=== PATIENT | female | born 1995 | race African-American/Black ===

== ENCOUNTER 2016-11-30 11:46 | Emergency (ER) | payer SELFPAY ==
[~2016-11-30] VITALS: Ht 167.6 cm; Wt 77.0 kg
[2016-11-30 11:48] VITALS: BP 118/61; PULSE 80; RESP 15; TEMP 98.2; O2SAT 98
--- NOTE | 2016-11-30 12:03 | PD ---
HPI . Pelvic pain Chief Complaint: Infant Room Teacher Problem/Complaint Time Seen by Provider: 11:54 Travel History International Travel<30 days: No Contact w/Intl Traveler<30days: No Traveled to known affect area: No History of Present Illness HPI Patient presents complaining with amenorrhea since July, vaginal itching and foul odor and pelvic pain. She states she has had these symptoms for about a month. She describes the pelvic pain as similar to menstrual cramps and rates it as 7/10. Pain is exacerbated by sexual intercourse. She reports no relieving factors. PFSH Past Medical History ?: Not LMP: 07/2016 Social History Tobacco Use: No Allergies-Medications (Allergen,Severity, Reaction): Coded Allergies: No Known Allergies (Unverified , 11/30/16) Reported Meds & Prescriptions Reported Meds & Active Scripts Active Ultram (Tramadol HCl) 50 Mg Tab 50 Mg PO Q4H PRN Ibuprofen 800 Mg Tab 800 Mg PO Q8H PRN Flagyl (Metronidazole) 500 Mg Tab 500 Mg PO BID 7 Days Doxycycline Hyclate 100 Mg Cap 100 Mg PO BID Review of Systems Except as stated in HPI: all other systems reviewed are Neg General / Constitutional: No: Fever, Chills Genitourinary: Positive: Pelvic Pain, Dyspareunia (amenorrhea), Discharge, Other, No: Urgency, Frequency, Dysuria Physical Exam Narrative GENERAL: Awake and alert and in no acute distress. SKIN: Warm and dry. HEAD: Atraumatic. Normocephalic. EYES: Pupils equal and round. NECK: Trachea midline. CARDIOVASCULAR: Regular rate and rhythm. RESPIRATORY: No accessory muscle use. MUSCULOSKELETAL: No obvious deformities. No edema. ABDOMEN: Abdomen is soft with suprapubic tenderness. No guarding or rebound. : Normal female. No obvious blood or discharge in the vaginal vault. Cervical os is closed. She does have cervical motion tenderness and bilateral adnexal tenderness. NEUROLOGICAL: Awake and alert. No obvious cranial nerve deficits. Motor grossly within normal limits. Normal speech. PSYCHIATRIC: Appropriate mood and affect; insight and judgment normal. Data Data Last Documented VS Vital Signs Date Time Temp Pulse Resp B/P Pulse Ox O2 Delivery O2 Flow Rate FiO2 11/30/16 11:48 98.2 80 15 118/61 98 Orders Gc And Chlamydia Pcr (11/30/16 11:55) Wet Prep Profile (11/30/16 11:55) Urinalysis - C+S If Indicated (11/30/16 11:55) Ed Urine Pregnancytest Poc (11/30/16 11:55) Ceftriaxone Inj (Rocephin Inj) (11/30/16 12:45) Lidocaine 1% Inj (50 Ml) (Xylocaine 1% I (11/30/16 12:45) MDM Medical Decision Making Medical Screen Exam Complete: Yes Emergency Medical Condition: Yes Differential Diagnosis Differential diagnosis of pelvic pain includes but is not limited to UTI, PID, ectopic , spontaneous AB, constipation, viral illness Narrative Course Patient presents complaining with pelvic pain. Exam is compatible with PID. Diagnosis Primary Impression: Pelvic pain Additional Impression: PID (acute pelvic inflammatory disease) Patient Instructions: General Instructions, Pelvic Inflammatory Disease (DC) Med/Other Pt SpecificInfo: Prescription(s) given Scripts Tramadol (Ultram)50 Mg Tab50 Mg PO Q4H PRN (PAIN) #12 TAB Ref 0 Prov:Lani Chambers MD 11/30/16 Ibuprofen 800 Mg Itw480 Mg PO Q8H PRN (pain) #30 TAB Ref 0 Prov:Lani Chambers MD 11/30/16 Metronidazole (Flagyl)500 Mg Bow691 Mg PO BID 7 Days Ref 0 Prov:Lani Chambers MD 11/30/16 Doxycycline Hyclate 100 Mg Yrw297 Mg PO BID #20 CAP Ref 0 Prov:Lani Chambers MD 11/30/16 Disposition: 01 DISCHARGE HOME Condition: Stable Lani Chambers MD Nov 30, 2016 12:03
[2016-11-30] MEDS ORDERED: ULTR50TA5 PO (12:37)
[2016-11-30] MEDS ORDERED: IBUP800T23 PO (12:37)
[2016-11-30] MEDS ORDERED: DOXY100C PO (12:37)
[2016-11-30] MEDS ORDERED: METR-1 PO (12:37)
[2016-11-30] MEDS ORDERED: cefTRIAXone 250 MG VIAL IM ONE (12:45)
[2016-11-30] MEDS ORDERED: LIDOCAINE HCL 1% 50 ML VIAL XX ONE (12:45)
[2016-11-30 12:55] LABS: BLOOD, URINE NEG (NEG); COMMENT (UR) CULT NOT INDICATED; CULTURE IF INDICATED CULT NOT INDICATED; GLUCOSE,URINE NEG (NEG); KETONE, URINE NEG (NEG); MUCUS URINE FEW /lpf (OCC); NITRITE,URINE NEG (NEG); PH, URINE 5.5 (5.0-8.5); SQUAMOUS EPITHELIAL CELL URINE 3 /hpf (0-5); URINE COLOR YELLOW (YELLW/STRAW)
[2016-11-30 19:10] LABS: CHLAMYDIA PCR NOT DETECTED (NOT DETECT); NEISSERIA PCR NOT DETECTED (NOT DETECT)
== END 2016-11-30 13:25 | disposition home or self-care (01) ==
LOC: NEPD 11:46
DX: R10.2 Pelvic and perineal pain (principal); N73.9 Female pelvic inflammatory disease, unspecified; N91.2 Amenorrhea, unspecified
CPT/HCPCS: 81001; 84703; 87210; 87491; 87591; 96372; 99284; J0696

== ENCOUNTER 2016-12-23 14:43 | Emergency (ER) | payer MEDICAID ==
[~2016-12-23] VITALS: Ht 167.6 cm; Wt 81.0 kg
[~2016-12-23 14:43] MED LIST: DOXY100C PO; IBUP800T23 PO; METR-1 PO; ULTR50TA5 PO
[2016-12-23 16:56] LABS: AUTOMATED NEUTROPHIL # 4.3 TH/MM3 (1.8-7.7); BASOPHIL % 0.5 % (0.0-2.0); EOSINOPHIL # 0.1 TH/MM3 (0-0.4); EOSINOPHIL % 1.5 % (0.0-4.0); HEMATOCRIT 35.7 % (35.0-46.0); HEMO FLAGS DIFF FINAL; LYMPH % 27.4 % (9.0-44.0); LYMPHOCYTE # 1.9 TH/MM3 (1.0-4.8); MEAN CELL VOLUME 87.5 FL (80.0-100.0); MEAN CORPUSCULAR HEMOGLOBIN 29.1 PG (27.0-34.0); MEAN CORPUSCULAR HGB CONC 33.3 % (32.0-36.0); MONO % 7.7 % (0.0-8.0); NEUT % 62.9 % (16.0-70.0); PLATELET COUNT 252 TH/MM3 (150-450); RED BLOOD COUNT 4.08 MIL/MM3 (4.00-5.30); RED CELL DISTRIBUTION WIDTH 12.2 % (11.6-17.2); WHITE BLOOD COUNT 6.8 TH/MM3 (4.0-11.0)
--- NOTE | 2016-12-23 17:16 | PD ---
HPI Chief Complaint: Related Problem Time Seen by Provider: 16:50 Travel History International Travel<30 days: No Contact w/Intl Traveler<30days: No Traveled to known affect area: No History of Present Illness HPI 21 year old black female presents with C/O of vaginal bleeding & low ABD pain since this morning. She reports she had a positive test 2 weeks prior. Her last normal period was in June of 2017, although she had a negative 3 weeks ago at this hospital. A1. She reports bleeding is consistent with a normal period. She denies N/V, fever, chills, or weakness. She denies any PMH. She denies any home meds. PFSH Past Medical History Medical History: Denies Significant Hx ?: LMP: jun 2016 Past Surgical History Surgical History: No Previous Surgery Social History Alcohol Use: No Tobacco Use: No Substance Use: No Allergies-Medications (Allergen,Severity, Reaction): Coded Allergies: No Known Allergies (Unverified , 11/30/16) Reported Meds & Prescriptions Reported Meds & Active Scripts Active No Active Prescriptions or Reported Medications Review of Systems Except as stated in HPI: all other systems reviewed are Neg Physical Exam Narrative GENERAL: Well appearing black female in no distress. SKIN: Warm and dry. HEAD: Normocephalic. EYES: No scleral icterus. No injection or drainage. NECK: Supple, trachea midline. No JVD or lymphadenopathy. CARDIOVASCULAR: Regular rate and rhythm without murmurs, gallops, or rubs. RESPIRATORY: Breath sounds equal bilaterally. No accessory muscle use. GASTROINTESTINAL: Abdomen soft, non-tender, nondistended. MUSCULOSKELETAL: No cyanosis, or edema. BACK: Nontender without obvious deformity. No CVA tenderness. Data Data Last Documented VS Vital Signs Date Time Temp Pulse Resp B/P Pulse Ox O2 Delivery O2 Flow Rate FiO2 12/23/16 18:38 98.2 78 15 126/68 100 Room Air Orders Ed Urine Pregnancytest Poc (12/23/16 15:44) Beta Hcg (Quant/Titer) (12/23/16 16:07) Complete Blood Count With Diff (12/23/16 16:07) Type And Screen (12/23/16 16:07) Us Pelvis (Ques Pr/Ect)W Trans (12/23/16 ) Labs Laboratory Tests Test 12/23/16 16:35 White Blood Count 6.8 TH/MM3 Red Blood Count 4.08 MIL/MM3 Hemoglobin 11.9 GM/DL Hematocrit 35.7 % Mean Corpuscular Volume 87.5 FL Mean Corpuscular Hemoglobin 29.1 PG Mean Corpuscular Hemoglobin 33.3 % Concent Red Cell Distribution Width 12.2 % Platelet Count 252 TH/MM3 Mean Platelet Volume 8.3 FL Neutrophils (%) (Auto) 62.9 % Lymphocytes (%) (Auto) 27.4 % Monocytes (%) (Auto) 7.7 % Eosinophils (%) (Auto) 1.5 % Basophils (%) (Auto) 0.5 % Neutrophils # (Auto) 4.3 TH/MM3 Lymphocytes # (Auto) 1.9 TH/MM3 Monocytes # (Auto) 0.5 TH/MM3 Eosinophils # (Auto) 0.1 TH/MM3 Basophils # (Auto) 0.0 TH/MM3 CBC Comment DIFF FINAL Differential Comment Human Chorionic Gonadotropin, 3139 MIU/ML Quant Blood Type O POSITIVE Antibody Screen NEGATIVE Blood Bank Comment MDM Medical Decision Making Medical Screen Exam Complete: Yes Emergency Medical Condition: Yes Medical Record Reviewed: Yes Differential Diagnosis ectopic vs spontaneous miscarriage vs vaginal bleeding in Narrative Course 21 year old female with vaginal bleeding in early . She is well appearing. CBC, Beta HCG, transvaginal US pending. CBC unremarkable, Beta HCG 3139, US gestational sac located in the lower uterine segment, no adnexal mass. Patient is well appearing reports minimal pain/discomfort. Discussed labs & US findings & need for repeat serum HCG in 2 days. 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 she agrees to plan. Diagnosis Primary Impression: Threatened Patient Instructions: General Instructions Additional Instructions: return to ED for repeat serum HCG in 2 days. return prior if you develop new or worsening symptoms. Scripts No Active Prescriptions or Reported Meds Disposition: 01 DISCHARGE HOME Condition: Stable Yojana Robledo December 23, 2016 17:16
[2016-12-23 17:34] LABS: BETA HCG QUANT 3139 MIU/ML (0-5)
[2016-12-23 18:38] VITALS: BP 126/68; PULSE 78; RESP 15; TEMP 98.2; O2SAT 100
--- NOTE | 2016-12-23 20:25 | RADRPT ---
EXAM DATE/TIME: 12/23/2016 18:37 [facility] COMPARISON: No previous studies available for comparison. INDICATIONS : Pelvic pain and bleeding with . LAB(S): Beta-hC MEDICAL HISTORY : . Miscarriage. SURGICAL HISTORY : None. ENCOUNTER: Initial ACUITY: 1 day PAIN SCORE: 7/10 LOCATION: Bilateral pelvis MEASUREMENTS: UTERUS: 8.8 x 5.1 x 4.3 cm ENDOMETRIAL STRIPE: 7 mm RIGHT OVARY: 3.7 x 3.1 x 1.8 cm LEFT OVARY: 3.3 x 2.4 x 2.1 cm FREE FLUID: Yes Small amount in posterior cul-de-sac.. CROWN RUMP LENGTH: Non visualized. = WKS DAYS FHR: Non visualized. BPM FINDINGS: There appears to be a small gestational sac in the region of the lower uterine segment/cervix. No vi sible pole or yolk sac is identified. The findings raise the possibility of early or missed . Clinical correlation is recommended. Correlation with serial Beta HCG levels is r ecommended. No adnexal mass is noted. Minimal free fluid is noted within the cul-de-sac. The ovari es are unremarkable. CONCLUSION: 1. Small apparent gestational sac in the region of the lower uterine segment/cervix. Differential i ncludes missed/impending or early intrauterine . Correlation with serial Beta HCG levels and clinical findings is suggested. 2. Minimal free fluid within the cul-de-sac. 3. No adnexal mass. 4. Unremarkable ovaries. 5. There is no evidence of pole or yolk sac within the apparent gestational sac. Chencho Eastman MD on December 23, 2016 at 20:09 Board Certified Radiologist. This report was verified electronically.
--- NOTE | 2016-12-23 21:07 | PD ---
Data Data Last Documented VS Vital Signs Date Time Temp Pulse Resp B/P Pulse Ox O2 Delivery O2 Flow Rate FiO2 12/23/16 18:38 98.2 78 15 126/68 100 Room Air Orders Ed Urine Pregnancytest Poc (12/23/16 15:44) Beta Hcg (Quant/Titer) (12/23/16 16:07) Complete Blood Count With Diff (12/23/16 16:07) Type And Screen (12/23/16 16:07) Us Pelvis (Ques Pr/Ect)W Trans (12/23/16 ) Labs Laboratory Tests Test 12/23/16 16:35 White Blood Count 6.8 TH/MM3 Red Blood Count 4.08 MIL/MM3 Hemoglobin 11.9 GM/DL Hematocrit 35.7 % Mean Corpuscular Volume 87.5 FL Mean Corpuscular Hemoglobin 29.1 PG Mean Corpuscular Hemoglobin 33.3 % Concent Red Cell Distribution Width 12.2 % Platelet Count 252 TH/MM3 Mean Platelet Volume 8.3 FL Neutrophils (%) (Auto) 62.9 % Lymphocytes (%) (Auto) 27.4 % Monocytes (%) (Auto) 7.7 % Eosinophils (%) (Auto) 1.5 % Basophils (%) (Auto) 0.5 % Neutrophils # (Auto) 4.3 TH/MM3 Lymphocytes # (Auto) 1.9 TH/MM3 Monocytes # (Auto) 0.5 TH/MM3 Eosinophils # (Auto) 0.1 TH/MM3 Basophils # (Auto) 0.0 TH/MM3 CBC Comment DIFF FINAL Differential Comment Human Chorionic Gonadotropin, 3139 MIU/ML Quant Blood Type O POSITIVE Antibody Screen NEGATIVE Blood Bank Comment [facility] Supervised Visit with SANDIE: Yes Narrative Course The history, exam, and medical decision-making in the associated midlevel provider note were completed with my assistance. I reviewed and agree with the findings presented. I attest that I had a [id number] encounter with the patient on the same day, and personally performed and documented my assessment and findings in the medical record. *My assessment and Findings: This is a 21-year-old female who presents the emergency department with a positive test and vaginal bleeding. She is well-appearing on exam. Ultrasound demonstrates a towards the lower uterine segment which could be an incomplete miscarriage versus an early . Patient was asked to return to the emergency department for repeat hCG in 2 days and reevaluation. She expressed understanding. Diagnosis Primary Impression: Threatened Patient Instructions: General Instructions Additional Instruction: return to ED for repeat serum HCG in 2 days. return prior if you develop new or worsening symptoms. Scripts No Active Prescriptions or Reported Meds Disposition: 01 DISCHARGE HOME Condition: Stable Juana Duran MD December 23, 2016 21:07
--- NOTE | 2016-12-28 21:07 | PD ---
HPI Chief Complaint: Related Problem Time Seen by Provider: 16:50 Travel History International Travel<30 days: No Contact w/Intl Traveler<30days: No Traveled to known affect area: No History of Present Illness HPI 21 year old female present with C/O vaginal bleeding & low ABD pain since this morning. She reports the pain as cramping, non radiating, and intermittent since this morning. She reports she had a positive test 2 weeks prior. Her last normal period was June of 2016. She reports a negative test 3 weeks ago here at this hospital. B3. She reports the bleeding is consistent with a normal period. She denies dizziness, N/V, fever, chills, or weakness. She denies PMH. No home meds. PFSH Past Medical History Medical History: Denies Significant Hx ?: LMP: jun 2016 Past Surgical History Surgical History: No Previous Surgery Social History Alcohol Use: No Tobacco Use: No Substance Use: No Allergies-Medications (Allergen,Severity, Reaction): Coded Allergies: No Known Allergies (Unverified , 12/26/16) Reported Meds & Prescriptions Reported Meds & Active Scripts Active No Active Prescriptions or Reported Medications Review of Systems Except as stated in HPI: all other systems reviewed are Neg Physical Exam Narrative GENERAL: Well appearing black female in no distress. SKIN: Warm and dry. HEAD: Normocephalic. EYES: No scleral icterus. No injection or drainage. NECK: Supple, trachea midline. No JVD or lymphadenopathy. CARDIOVASCULAR: Regular rate and rhythm without murmurs, gallops, or rubs. RESPIRATORY: Breath sounds equal bilaterally. No accessory muscle use. GASTROINTESTINAL: Abdomen soft, non-tender, nondistended. MUSCULOSKELETAL: No cyanosis, or edema. BACK: Nontender without obvious deformity. No CVA tenderness. Data Data Orders Ed Urine Pregnancytest Poc (12/23/16 15:44) Beta Hcg (Quant/Titer) (12/23/16 16:07) Complete Blood Count With Diff (12/23/16 16:07) Type And Screen (12/23/16 16:07) Us Pelvis (Ques Pr/Ect)W Trans (12/23/16 ) [facility] Medical Decision Making Medical Screen Exam Complete: Yes Emergency Medical Condition: Yes Medical Record Reviewed: Yes Differential Diagnosis ectopic vs spontaneous miscarriage vs vaginal bleeding in Narrative Course 21 year old female with vaginal bleeding in early . She is well appearing. CBC, Beta HCG, transvaginal US pending. CBC unremarkable, Beta HCG 3139, US gestational sac located in lower uterine segment, no adnexal mass. Patient is well appearing reports minimal pain/discomfort. Discussed labs & US findings & need for repeat serum HCG in 2 days. 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 Diagnosis Primary Impression: Threatened Patient Instructions: Threatened Miscarriage (ED) Departure Forms: Tests/Procedures Additional Instructions: return to ED for repeat serum HCG in 2 days. return prior if you develop new or worsening symptoms. Scripts No Active Prescriptions or Reported Meds Disposition: 01 DISCHARGE HOME Condition: Stable Yojana Robledo December 28, 2016 21:07
== END 2016-12-23 21:49 | disposition home or self-care (01) ==
LOC: NEPD 14:43
DX: O20.0 Threatened abortion (principal); R10.30 Lower abdominal pain, unspecified
CPT/HCPCS: 76700; 76817; 84702; 84703; 85025; 86850; 86900; 86901

== ENCOUNTER 2016-12-25 09:34 | Emergency (ER) | payer MEDICAID ==
[~2016-12-25] VITALS: Ht 167.6 cm; Wt 80.0 kg
[2016-12-25 09:35] VITALS: BP 112/60; PULSE 74; RESP 20; TEMP 97.4; O2SAT 100
--- NOTE | 2016-12-25 10:09 | PD ---
HPI Chief Complaint: Related Problem Time Seen by Provider: 09:47 Travel History International Travel<30 days: No Contact w/Intl Traveler<30days: No Traveled to known affect area: No History of Present Illness HPI The patient is a 21-year-old Gina female who is Ab1 whose last menstrual cycle was June 2016, she does have a history of irregular menstrual cycles. The patient was evaluated in the emergency department several days ago where she had an ultrasound performed and a beta hCG performed , was diagnosed with threatened AB and advised to return in 48-72 hours for repeat beta hCG. The patient states she had some vaginal bleeding that started 3 days ago, is now very light without any visible clots. The patient denies any lower abdominal pain or cramping. The patient denies any associated nausea , vomiting, or upper abdominal pain. She denies any dysuria, frequency, or urgency. PFSH Past Medical History ?: Social History Alcohol Use: No Tobacco Use: No Substance Use: No Allergies-Medications (Allergen,Severity, Reaction): Coded Allergies: No Known Allergies (Unverified , 12/25/16) Reported Meds & Prescriptions Reported Meds & Active Scripts Active No Active Prescriptions or Reported Medications Review of Systems Except as stated in HPI: all other systems reviewed are Neg General / Constitutional: No: Fever Cardiovascular: No: Chest Pain or Discomfort Respiratory: No: Shortness of Breath Gastrointestinal: No: Nausea, Vomiting, Diarrhea, Abdominal Pain Genitourinary: Positive: Vaginal Bleeding, No: Dysuria, Pelvic Pain Physical Exam Narrative GENERAL: Awake, alert, 21-year-old female who appears her stated age and is in no acute respiratory distress. SKIN: Focused skin assessment warm/dry. HEAD: Atraumatic. Normocephalic. EYES: Pupils equal and round. No scleral icterus. No injection or drainage. ENT: No nasal bleeding or discharge. Mucous membranes pink and moist. NECK: Trachea midline. No JVD. CARDIOVASCULAR: Regular rate and rhythm. No murmur appreciated. RESPIRATORY: No accessory muscle use. Clear to auscultation. Breath sounds equal bilaterally. GASTROINTESTINAL: Abdomen soft, non-tender, nondistended. No rebound tenderness. Back: No CVA tenderness. MUSCULOSKELETAL: No obvious deformities. No clubbing. No cyanosis. No edema. NEUROLOGICAL: Awake and alert. No obvious cranial nerve deficits. Motor grossly within normal limits. Normal speech. PSYCHIATRIC: Appropriate mood and affect; insight and judgment normal. Data Data Last Documented VS Vital Signs Date Time Temp Pulse Resp B/P Pulse Ox O2 Delivery O2 Flow Rate FiO2 12/25/16 10:11 80 18 12/25/16 09:35 97.4 112/60 100 Room Air Orders Beta Hcg (Quant/Titer) (12/25/16 10:05) Labs Laboratory Tests Test 12/25/16 10:25 Human Chorionic Gonadotropin, 4286 MIU/ML Quant MDM Medical Decision Making Medical Screen Exam Complete: Yes Emergency Medical Condition: Yes Medical Record Reviewed: Yes Interpretation(s) Laboratory Tests Test 12/25/16 10:25 Human Chorionic Gonadotropin, 4286 MIU/ML Quant Differential Diagnosis Differential diagnosis includes threatened AB, incomplete AB, normal , ectopic . Narrative Course I reviewed the patient's labs from several days ago, she had a blood bank performed which revealed a positive, therefore, no indication for RhoGAM. The patient's beta hCG at that time was 3139. Patient had an ultrasound which revealed what appeared to be an early in the lower uterine segment upper cervix versus threatened AB. Therefore, repeat beta ECG with level will be performed. The patient is currently asymptomatic except for light vaginal bleeding, I doubt ectopic . The patient's beta hCG levels up to 4286, therefore, patient may have threatened AB versus normal . The patient is advised to follow-up with an rail track layer. Return if symptoms worsen or progress. Diagnosis Primary Impression: Threatened Patient Instructions: General Instructions Additional Instructions: Please provide a patient a copy of her beta hCG results and ultrasound results from previous visit at discharge. Follow-up with an rail track layer. Take a vitamin daily. Return if symptoms worsen or progress. Scripts No Active Prescriptions or Reported Meds Disposition: DISCHARGE HOME Condition: Stable Mark Duff MD December 25, 2016 10:08
[2016-12-25 11:13] LABS: BETA HCG QUANT 4286 MIU/ML (0-5)
== END 2016-12-25 11:43 | disposition home or self-care (01) ==
LOC: NEPD 09:34
DX: O20.0 Threatened abortion (principal); Z3A.00 Weeks of gestation of pregnancy not specified
CPT/HCPCS: 84702; 99283

== ENCOUNTER 2016-12-30 13:34 | Emergency (ER) | payer MEDICAID ==
[~2016-12-30] VITALS: Ht 167.6 cm; Wt 80.0 kg
[2016-12-30 13:35] VITALS: BP 124/98; PULSE 96; RESP 20; TEMP 97.3; O2SAT 100
--- NOTE | 2016-12-30 14:32 | PD ---
HPI Chief Complaint: Related Problem Time Seen by Provider: 14:28 Travel History International Travel<30 days: No Contact w/Intl Traveler<30days: No Traveled to known affect area: No History of Present Illness HPI Patient comes back to the emergency department complaining of continued abdominal cramping and vaginal bleeding. Patient reports this got worse yesterday. Patient states that she was supposed to get blood work done 2 days ago after seeing OB however she was not able to go and tried to go yesterday instead, but the lab was closed. Patient denies any fevers, nausea, vomiting, loss change in bowel or bladder, chest pain, shortness of breath. Patient states she is wanting to know what is going on inside of her. Patient reports she's been taking vitamins. Denies doing anything else for this. A1. Patient reports she had an elective approximately a year ago. Patient states she was approximately a month and went to a doctor and was given 2 oral pills as well as 2 vaginal suppository to abort the . PFSH Past Medical History Medical History: Denies Significant Hx ?: Social History Alcohol Use: No Tobacco Use: No Substance Use: No Allergies-Medications (Allergen,Severity, Reaction): Coded Allergies: No Known Allergies (Unverified , 12/30/16) Reported Meds & Prescriptions Reported Meds & Active Scripts Active No Active Prescriptions or Reported Medications Review of Systems Except as stated in HPI: all other systems reviewed are Neg Physical Exam Narrative GENERAL: Well-developed, overly nourished, in no acute distress, and non-ill appearing. SKIN: Focused skin assessment warm and dry. HEAD: Atraumatic. Normocephalic. EYES: Pupils equal and round. EOMI. No scleral icterus. No injection or drainage. ENT: No nasal bleeding or discharge. Mucous membranes pink and moist. NECK: Trachea midline. Supple. No nuclear rigidity. CARDIOVASCULAR: Regular rate and rhythm. No murmur appreciated. RESPIRATORY: No accessory muscle use. No respiratory distress. Clear to auscultation. Breath sounds equal bilaterally. GASTROINTESTINAL: Abdomen soft, non-tender, nondistended. Hepatic and splenic margins not palpable. Normal bowel sounds 4. No pulsatile mass. MUSCULOSKELETAL: No obvious deformities. No clubbing. No cyanosis. No edema. Full range of motion. NEUROLOGICAL: Awake and alert. No obvious cranial nerve deficits. Motor grossly within normal limits. Normal speech. PSYCHIATRIC: Appropriate mood and affect; insight and judgment normal. Data Data Last Documented VS Vital Signs Date Time Temp Pulse Resp B/P Pulse Ox O2 Delivery O2 Flow Rate FiO2 12/30/16 13:35 97.3 96 20 124/98 100 Room Air Orders Beta Hcg (Quant/Titer) (12/30/16 14:25) Urinalysis - C+S If Indicated (12/30/16 14:25) Us Pelvis (Ques Pr/Ect)W Trans (12/30/16 ) Labs Laboratory Tests Test 12/30/16 14:40 Urine Color YELLOW Urine Turbidity HAZY Urine pH 7.5 Urine Specific [place] 1.028 Urine Protein 30 mg/dL Urine Glucose (UA) NEG mg/dL Urine Ketones NEG mg/dL Urine Occult Blood MOD Urine Nitrite NEG Urine Bilirubin NEG Urine Urobilinogen LESS THAN 2.0 MG/DL Urine Leukocyte Esterase MOD Urine RBC 1 /hpf Urine WBC 5 /hpf Urine Squamous Epithelial 3 /hpf Cells Urine Mucus FEW /lpf Microscopic Urinalysis Comment CULT NOT INDICATED Human Chorionic Gonadotropin, 4486 MIU/ML Quant MDM Medical Decision Making Medical Screen Exam Complete: Yes Emergency Medical Condition: Yes Interpretation(s) Pelvic ultrasound read by the radiologist shows: Persistent cystic area in the endocervical canal that appears slightly larger. However, an embryonic pole or yolk sac is not seen. This could be a missed . A pseudogestational sac cannot absolutely be excluded. An ectopic is not excluded given the lack of a normal appearing IUP. However, an adnexal mass is not seen. Differential Diagnosis Ectopic , spontaneous , threatened , molar , other Narrative Course Patient presented with vaginal bleeding and lower abdominal pain and the test was positive. Ultrasound was performed and there is no obvious evidence of a uterine , but there is a gestational sac versus cyst. However the quantitative B-HcG was elevated. There is no evidence to suggest obvious ectopic or ruptured ectopic , nor cervicitis, PID or torsion at this time. There was no evidence to support colitis, diverticulitis, obstruction, abdominal or femoral herniation, volvulus, early appendicitis, or hernial incarceration or strangulation at this time. Patient is stable. There is no RH incompatibility. After discussing with OB on-call patient can be released at this time with acute follow up. Patient was warned on the possibility of an ectopic versus cyst versus threatened and to return IMMEDIATELY if the pain and/or bleeding worsened, felt faint or passed out. The patient was instructed to follow up with OB within 2-3 days, and was given contact information. She was given ectopic warnings and warnings to return if bleeding worsened, felt faint or passed out, fever, worsening pain, inability to tolerate fluids, or as needed. The patient agreed with plan and stated will follow up as instructed. Patient in no obvious distress upon re-evaluation. All pertinent laboratory/ Radiology result(s) discussed with patient. Discussed patient with Dr. Jackson prior to discharge, who is in agreement with plan of care and disposition. Any questions/concerns in reference to patient diagnosis/condition discussed and clarified prior to patient's discharge. Reinforced sheer importance of close follow up with patient's OB. Instructed patient to return to ED immediately, if symptoms return/worsen. Pt showed understanding of above instructions. Further instructions and recommendations were detailed in discharge paperwork. Pt ambulated without difficulty out of ED at discharge. Physician Communication Physician Communication [phone] Cruz, OB communication spec, who recommends is having patient follow up with Dr. Rosado in 2-3 days for further evaluation. No additional intervention at this time. Diagnosis Primary Impression: Threatened Referrals: Marco Antonio Rosado MD Patient Instructions: General Instructions, Threatened Miscarriage (ED) Additional Instructions: Follow-up with your OB in 2-3 days for reevaluation. Use [id number] Tylenol as needed for pain. Follow instructions on the packaging. Return to the emergency department if symptoms get worse. Scripts No Active Prescriptions or Reported Meds Disposition: 01 DISCHARGE HOME Condition: Stable Kilo Lara December 30, 2016 14:32
[2016-12-30 15:14] LABS: BLOOD, URINE MOD (NEG); COMMENT (UR) CULT NOT INDICATED; CULTURE IF INDICATED CULT NOT INDICATED; GLUCOSE,URINE NEG (NEG); KETONE, URINE NEG (NEG); MUCUS URINE FEW /lpf (OCC); NITRITE,URINE NEG (NEG); PH, URINE 7.5 (5.0-8.5); SQUAMOUS EPITHELIAL CELL URINE 3 /hpf (0-5); URINE COLOR YELLOW (YELLW/STRAW)
[2016-12-30 15:26] LABS: BETA HCG QUANT 4486 MIU/ML (0-5)
--- NOTE | 2016-12-30 17:03 | RADRPT ---
EXAM DATE/TIME: 12/30/2016 15:47 [facility] COMPARISON: US PELVIS (QUEST PREG/ECTOPIC) W/TRANSVAG, December 23, 2016, 18:37. INDICATIONS : Pelvic pain and bleeding with . LAB(S): Beta-hC MEDICAL HISTORY : . . SURGICAL HISTORY : None. ENCOUNTER: Subsequent ACUITY: 1 week PAIN SCORE: 6/10 LOCATION: Bilateral pelvis MEASUREMENTS: UTERUS: 8.8 x 5.8 x 4.1 cm ENDOMETRIAL STRIPE: 5 mm RIGHT OVARY: 4.0 x 3.5 x 2.0 cm LEFT OVARY: 3.5 x 3.1 x 1.7 cm FREE FLUID: Yes Trace in posterior cul-de-sac. CROWN RUMP LENGTH: Non visualized. FHR: Non visualized. FINDINGS: UTERUS: There continues to be a cystic structure in the endocervical canal measuring 1.3 x 0.9 x 1.3 cm. An embryonic pole or yolk sac is not seen. This does appear slightly larger than it did previously. It previously measured 1.1 x 0.5 x 1.0 cm. The endometrial cavity is not thickened measuring 5 mm. No other possible cystic structures are seen within the endometrial cavity. RIGHT OVARY: Ovary contains no mass or significant cystic lesion. Small follicles are seen. LEFT OVARY: Ovary contains no mass or significant cystic lesion. Small follicles are seen. MISCELLANEOUS: There is a trace amount of free fluid seen in the posterior cul-de-sac. CONCLUSION: Persistent cystic area in the endocervical canal that appears slightly larger. However, an embryonic pole or yolk sac is not seen. This could be a missed . A pseudogestational sac cannot abso lutely be excluded. An ectopic is not excluded given the lack of a normal appearing IUP. However, an adnexal mass is not seen. Continued followup and clinical correlation is recommended. Tal Spencer MD on December 30, 2016 at 16:45 Board Certified Radiologist. This report was verified electronically.
== END 2016-12-30 17:58 | disposition home or self-care (01) ==
LOC: NEPE 13:34
DX: O20.0 Threatened abortion (principal); Z3A.00 Weeks of gestation of pregnancy not specified
CPT/HCPCS: 76700; 76817; 81001; 84702

== ENCOUNTER 2017-09-01 15:01 | Emergency (ER) | payer SELFPAY ==
[~2017-09-01] VITALS: Ht 165.1 cm; Wt 94.3 kg
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
== END 2017-09-01 16:51 | disposition home or self-care (01) ==
LOC: HOBED 15:01
DX: O9A.212 Injury, poisoning and certain other consequences of external causes complicating pregnancy, second trimester (principal); S39.91XA Unspecified injury of abdomen, initial encounter; Y04.0XXA Assault by unarmed brawl or fight, initial encounter; Z3A.25 25 weeks gestation of pregnancy
CPT/HCPCS: 99283

== ENCOUNTER 2017-09-01 16:54 | Emergency (ER) | payer SELFPAY ==
[~2017-09-01] VITALS: Ht 165.1 cm; Wt 95.0 kg
[2017-09-01 16:54] VITALS: BP 118/61; PULSE 96; RESP 16; TEMP 98.4; O2SAT 100
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
[2017-09-01] MEDS ORDERED: LIDOCAINE HCL 2% JELLY 5 ML SYRINGE TOPICAL ONE ×2 (18:15)
[2017-09-01] MEDS ORDERED: LIDOCAINE 2% JELLY 5 ML TUBE TOPICAL ONE (18:30)
== END 2017-09-01 18:55 | disposition home or self-care (01) ==
LOC: NEPD 16:54
DX: O9A.219 Injury, poisoning and certain other consequences of external causes complicating pregnancy, unspecified trimester (principal); S61.306A Unspecified open wound of right little finger with damage to nail, initial encounter; Y04.0XXA Assault by unarmed brawl or fight, initial encounter
CPT/HCPCS: 99282

== ENCOUNTER 2017-12-25 12:26 | Emergency (ER) | payer MEDICAID ==
--- NOTE | 2017-12-25 13:21 | PD ---
HPI Chief Complaint decreased movement Date Seen: December 25, 2017 Time Seen: 13:00 Travel History International Travel<30 Days: No Contact w/Intl Traveler<30Days: No Known Affected Area: No History of Present Illness HPI Patient is a 22 yo F at 41/3days presenting to OB triage with c/o decreased movement for the past 3 days. Denies vaginal bleeding, LOF or contraction. Pt is GBS positive. JAYA: 12/15/17. She was 2cm dilated on last cervical check on 12/18/17. Endorses mild shortness of breath with walking mild back pain. No chest pain, headaches visual disturbances, nausea or vomiting. Weeks Gestation: 41 Para: 1 : 4 History Past Medical History Medical History: Denies Significant Hx Obstetric History Obstetric History No complications with this thus far Miscarriages 1 1 1 full-term spontaneous vaginal delivery no complications Past Surgical History Surgical History: No Previous Surgery Family History Narrative Family History DM- grandmothers Social History Alcohol Use: No Tobacco Use: No Substance Abuse: No Allergies-Medications (Allergen,Severity, Reaction): Coded Allergies: No Known Allergies (Unverified , 09/01/17) Home Meds No Active Prescriptions or Reported Meds Narrative Medication no medications Review of Systems Except as stated in HPI: all other systems reviewed are Neg Physical Exam Narrative GENERAL: Well-nourished, well-developed patient. SKIN: Warm and dry. HEAD: Normocephalic and atraumatic. EYES: No scleral icterus. No injection or drainage. ENT: No nasal drainage noted. Mucous membranes pink. Airway patent. NECK: Supple, trachea midline. No JVD. CARDIOVASCULAR: Regular rate and rhythm without murmurs, gallops, or rubs. RESPIRATORY: Breath sounds equal bilaterally. No accessory muscle use. ABDOMEN/GI: Abdomen soft, non-tender, bowel sounds present, no rebound, no guarding Gravid to 41 weeks size GENITOURINARY: External Genitalia: intact and normal in appearance Membranes: intact Uterine Contractions: none FHT's: Category: 1 Baseline: 140 Reactive: yes Variability: moderate Decels: none EXTREMITIES: No cyanosis or edema. BACK: Nontender without obvious deformity. No CVA tenderness. NEUROLOGICAL: Awake and alert. Motor and sensory grossly within normal limits. Five out of 5 muscle strength in all muscle groups. Normal speech. Data Data Vital Signs Reviewed: Yes Orders Orders Vital Signs (Adult) .ON ADMISSION (12/25/17 12:59) ^ Labor Status (12/25/17 12:59) ^ Non Stress Test (12/25/17 12:59) Us Ob Bpp Wo Nst (12/25/17 12:59) Group B Strep: Positive MDM Medical Record Reviewed: Yes Plan Patient is a 22 yo F at 41/3days presenting to OB triage with c/o decreased movement for the past 3 days. IUP at 41/3 weeks 1. Patient reports movement since being on monitoring in OB triage 2. Continue monitoring for at least 20mins 3. f/u Biophysical profile 4. If monitoring is normal schedule pt for induction tomorrow night, . Patient with normal Biophysical profile 8/8, NST reactive tracing category 1 Pt scheduled for induction tomorrow at 6pm dw Dr. Frye Diagnosis Diagnosis: Primary Impression: 41 weeks gestation of Disposition: 01 DISCHARGE HOME Condition: Stable Scripts No Active Prescriptions or Reported Meds Patient Instructions: General Instructions, Movement (ED) Justin Mckinney MD, R1 December 25, 2017 13:21
[2017-12-26] MEDS ORDERED: PREN1PAK9 (21:33)
== END 2017-12-25 14:13 | disposition home or self-care (01) ==
LOC: HOBED 12:26
DX: O36.8130 Decreased fetal movements, third trimester, not applicable or unspecified (principal); O48.0 Post-term pregnancy; Z3A.41 41 weeks gestation of pregnancy
CPT/HCPCS: 59025; 76816; 76819

== ENCOUNTER 2017-12-26 18:22 | Inpatient (IN) | payer MEDICAID ==
[~2017-12-26] VITALS: Ht 165.1 cm; Wt 100.0 kg
--- NOTE | 2017-12-26 19:18 | HHI.HP ---
HPI Chief Complaint Schedule induction Date Seen: December 26, 2017 Time Seen: 19:17 Travel History International Travel<30 Days: No Contact w/Intl Traveler<30Days: No History of Present Illness HPI Patient is a 22 yo F at 41/4 days presenting to OB triage for a scheduled induction. Patient denies any loss of fluid, vaginal bleeding or contractions. Endorses movement. Patient is GBS positive. Patient denies any chest pain, shortness of breath, visual disturbances, nausea or vomiting. No issues or concerns. Weeks Gestation: 41 Para: 1 : 4 History Past Medical History Medical History: Denies Significant Hx Obstetric History Obstetric History No complications with this thus far Miscarriages 1 1 1 full-term spontaneous vaginal delivery no complications Past Surgical History Surgical History: No Previous Surgery Family History Narrative Family History DM- grandmother Social History Alcohol Use: No Tobacco Use: No Substance Abuse: No Allergies-Medications (Allergen,Severity, Reaction): Coded Allergies: No Known Allergies (Unverified , 09/01/17) Home Meds No Active Prescriptions or Reported Meds Narrative Medication no medications Review of Systems Except as stated in HPI: all other systems reviewed are Neg (Per HPI) Physical Exam Narrative GENERAL: Well-nourished, well-developed patient. SKIN: Warm and dry. HEAD: Normocephalic and atraumatic. EYES: No scleral icterus. No injection or drainage. ENT: No nasal drainage noted. Mucous membranes pink. Airway patent. NECK: Supple, trachea midline. No JVD. CARDIOVASCULAR: Regular rate and rhythm without murmurs, gallops, or rubs. RESPIRATORY: Breath sounds equal bilaterally. No accessory muscle use. ABDOMEN/GI: Abdomen soft, non-tender, bowel sounds present, no rebound, no guarding Gravid to 41 weeks size GENITOURINARY: External Genitalia: intact and normal in appearance Cervix: Posterior Dilatation: 3/4 Effacement: 70% Station: -2 Membranes: intact Uterine Contractions: rarely, 1 thus far after cervical exam FHT's: Category: 1 Baseline: 150 Reactive: yes Variability: moderate Decels:none EXTREMITIES: No cyanosis or edema. BACK: Nontender without obvious deformity. No CVA tenderness. NEUROLOGICAL: Awake and alert. Motor and sensory grossly within normal limits. Five out of 5 muscle strength in all muscle groups. Normal speech. Caprini VTE Risk Assessment Caprini VTE Risk Assessment: No/Low Risk (score <= 1) Caprini Risk Assessment Model Point Value = 1 Point Value = 2 Point Value = 3 Point Value = 5 Age 41-60 Minor surgery BMI > 25 kg/m2 Swollen legs Varicose veins or History of unexplained or recurrent spontaneous Oral contraceptives or hormone replacement Sepsis (< 1 month) Serious lung disease, including pneumonia (< 1 month) Abnormal pulmonary function Acute myocardial infarction Congestive heart failure (< 1 month) History of inflammatory bowel disease Medical patient at bed rest Age 61-74 Arthroscopic surgery Major open surgery (> 45 min) Laparoscopic surgery (> 45 min) Malignancy Confined to bed (> 72 hours) Immobilizing plaster cast Central venous access Age >= 75 History of VTE Family history of VTE Factor V Leiden Prothrombin [id number] Lupus anticoagulant Anticardiolipin antibodies Elevated serum homocysteine Heparin-induced thrombocytopenia Other congenital or acquired thrombophilia Stroke (< 1 month) Elective arthroplasty Hip, pelvis, or leg fracture Acute spinal cord injury (< 1 month) Prophylaxis Regimen Total Risk Factor Score Risk Level Prophylaxis Regimen 0-1 Low Early ambulation 2 Moderate Order ONE of the following: *Sequential Compression Device (SCD) *Heparin 5000 units SQ BID 3-4 Higher Order ONE of the following medications: *Heparin 5000 units SQ TID *Enoxaparin/Lovenox 40 mg SQ daily (WT < 150 kg, CrCl > 30 mL/min) *Enoxaparin/Lovenox 30 mg SQ daily (WT < 150 kg, CrCl > 10-29 mL/min) *Enoxaparin/Lovenox 30 mg SQ BID (WT < 150 kg, CrCl > 30 mL/min) AND/OR *Sequential Compression Device (SCD) 5 or more Highest Order ONE of the following medications: *Heparin 5000 units SQ TID (Preferred with Epidurals) *Enoxaparin/Lovenox 40 mg SQ daily (WT < 150 kg, CrCl > 30 mL/min) *Enoxaparin/Lovenox 30 mg SQ daily (WT < 150 kg, CrCl > 10-29 mL/min) *Enoxaparin/Lovenox 30 mg SQ BID (WT < 150 kg, CrCl > 30 mL/min) AND *Sequential Compression Device (SCD) Data Data Vital Signs Reviewed: Yes Group B Strep: Positive Assessment/Plan Problem List: (1) 41 weeks gestation of ICD Codes: Z3A.41 - 41 weeks gestation of Plan: Patient is a 22 yo F at 41/4 days presenting to OB triage for a scheduled induction. IUP at 41/4 weeks gestation 1. Admitted for induction of labor 2. Start low-dose Pitocin at 1: 1: 30 up to 4 milliunits and then resume augmentation at 4 AM at 1: 1: 30 3. Monitor vital signs and continuous heart tracings 3. Patient is GBS positive start prophylactic treatment with penicillin G 4. heart tracing category [address] Martinez (2) Elective induction of labor planned Status: Acute Plan: See plan above Justin Mckinney MD, R1 December 26, 2017 19:18
[2017-12-26] MEDS ORDERED: OXYTOCIN 30 UNITS-500ML PREMIX 500 ML IV PRN (19:30)
[2017-12-26] MEDS: LACTATED RINGER'S 1000 ML INJ 1,000 ML IV SCH (19:32)
[2017-12-26] MEDS ORDERED: PENICILLIN G POTASSIUM INJ 5,000,000 UNITS in SODIUM CHLORIDE 0.9% INJ 100 ML IV ONE (19:45)
[2017-12-26] MEDS ORDERED: CITRIC ACID-SODIUM CITRATE LIQ 30 ML UDC PO SCH (19:45)
[2017-12-26] MEDS ORDERED: SODIUM CHLORID 0.9% 500 ML INJ 500 ML IV PRN (19:45)
[2017-12-26] MEDS ORDERED: LIDOCAINE HCL 1% 50 ML VIAL I-DERMAL PRN (19:45)
[2017-12-26] MEDS ORDERED: LIDOCAINE HCL 1% 50 ML VIAL INFIL PRN (19:45)
[2017-12-26] MEDS ORDERED: MINERAL OIL 10 ML VIAL TOPICAL PRN (19:45)
[2017-12-26] MEDS ORDERED: ZOLPIDEM TARTRATE 5 MG TAB PO PRN (19:45)
[2017-12-26] MEDS ORDERED: OXYTOCIN 30 UNITS-500ML PREMIX 500 ML IV ONE (19:45)
[2017-12-26] MEDS ORDERED: SODIUM CHLOR 0.9% 1000 ML INJ 1,000 ML IV PRN (19:52)
[2017-12-26 20:12] LABS: AUTOMATED NEUTROPHIL # 6.5 TH/MM3 (1.8-7.7); BASOPHIL % 0.3 % (0.0-2.0); EOSINOPHIL % 0.5 % (0.0-4.0); HEMOGLOBIN 11.7 GM/DL (11.6-15.3); LYMPH % 19.8 % (9.0-44.0); LYMPHOCYTE # 1.8 TH/MM3 (1.0-4.8); MEAN CELL VOLUME 87.3 FL (80.0-100.0); MEAN CORPUSCULAR HEMOGLOBIN 27.7 PG (27.0-34.0); MEAN CORPUSCULAR HGB CONC 31.8 % (32.0-36.0); MEAN PLATELET VOLUME 9.1 FL (7.0-11.0); MONO % 7.2 % (0.0-8.0); MONOCYTE # 0.7 TH/MM3 (0-0.9); NEUT % 72.2 % (16.0-70.0); PLATELET COUNT 326 TH/MM3 (150-450); RED BLOOD COUNT 4.24 MIL/MM3 (4.00-5.30)
[2017-12-26 20:20] LABS: BILIRUBIN, URINE NEG (NEG); BLOOD, URINE NEG (NEG); GLUCOSE,URINE NEG (NEG); KETONE, URINE NEG (NEG); MUCUS URINE FEW /lpf (OCC); NITRITE,URINE NEG (NEG); SQUAMOUS EPITHELIAL CELL URINE 2 /hpf (0-5); URINE COLOR YELLOW (YELLW/STRAW); URINE LEUKOCYTE ESTERASE LARGE (NEG)
[2017-12-26 21:24] VITALS: BP 109/63; PULSE 78
[2017-12-26 21:25] VITALS: RESP 18
[2017-12-26] MEDS ORDERED: PREN1PAK9 (21:33)
[2017-12-26] MEDS: LACTATED RINGER'S 1000 ML INJ 1,000 ML IV PRN (22:03)
[2017-12-26 23:03] VITALS: BP 105/54; PULSE 81
[2017-12-26 23:15] VITALS: RESP 18; TEMP 98.1
--- NOTE | 2017-12-26 23:41 | HHI.PR ---
Subjective Remarks [facility] Attending Patient presented for scheduled IOL at 41.4. She had an ultrasound on with EFW 3439g and has an adequate pelvis. We discussed the risks of as well as the risks and indications for delivery. The mother reports all of her previous deliveries were without complication and delivered spontaneously. All of the patient's questions were answered. Will proceed with IOL. Objective Vital Signs Date Time Temp Pulse Resp B/P (MAP) Pulse Ox O2 Delivery O2 Flow Rate FiO2 12/26/17 23:15 98.1 18 12/26/17 23:03 81 105/54 (71) 12/26/17 21:25 18 12/26/17 21:24 78 109/63 (78) Result Diagram: 12/26/17 1900 Bruna Martinez MD December 26, 2017 23:40
[2017-12-26 23:58] VITALS: BP 114/51; PULSE 72
[2017-12-27] VITALS (37 sets, daily range): BP systolic 98–142; BP diastolic 47–114; PULSE 66–155; RESP 17–22; TEMP 97.8
[2017-12-27] MEDS: LACTATED RINGER'S 1000 ML INJ 1,000 ML IV SCH ×2 (03:32→15:33)
[2017-12-27] MEDS ORDERED: fentaNYL 2MCG-BUPIV 0.125% INJ 100 ML ONE (04:53)
[2017-12-27] MEDS ORDERED: LIDOCAINE HCL 1% PF 5 ML AMPULE ONE (05:17)
[2017-12-27] MEDS ORDERED: LIDOCAINE 1.5%/EPINEPHrine 1:200,000 PF 5 ML AMP ONE (05:18)
[2017-12-27] MEDS: PENICILLIN G POTASSIUM INJ 2,500,000 UNITS in SODIUM CHLORIDE 0.9% INJ 100 ML IV SCH ×4 (05:40→10:47)
[2017-12-27] MEDS: LACTATED RINGER'S 1000 ML INJ 1,000 ML IV PRN (05:42)
[2017-12-27] MEDS ORDERED: fentaNYL 2MCG-BUPIV 0.125% 100 ML EPIDURAL PRN (05:45)
[2017-12-27] MEDS ORDERED: NO SYSTEM NARCOTICS PRN (05:45)
[2017-12-27] MEDS ORDERED: ePHEDrine/NS 25 MG/5 ML SYRINGE IV PUSH PRN (05:45)
[2017-12-27] MEDS ORDERED: DO NOT ADMINISTER ANTICOAGULANTS PRN (05:45)
--- NOTE | 2017-12-27 07:09 | PD.OB.DELI ---
Weeks gestation: 41 Gest age assessed date: December 27, 2017 Gest age assessed time: 07:04 Anesthesia: Epidural Episiotomy: None Vaginal Delivery: Normal, Spontaneous Presentation: Occiput anterior, Vertex Nuchal Cord: None Delayed cord clamping (45 sec): Yes Infant: Male Delivery date: December 27, 2017 Delivery time: 06:46 One Minute : 6 Five Minute : 7 Weight: 3610 g Placenta: Spontaneous delivery, Intact, 3 vessel cord, Cord pH Laceration: No lacerations Estimated blood loss: 500 cc Additional Information At 0704, this 22 y/o , now P2, delivered vaginally under epidural anesthesia. Infant's head was delivered in between contractions as Mom continued to push in between contractions despite being counseled to wait in between. Mom seemed to tire at this time but baby's anterior shoulder was delivered after Mom pushed w/a contraction. There was a no nuchal cord. Infant was placed on patient's abdomen after delivery. The cord was clamped and cut after 45 seconds. Placenta was delivered intact w/normal 3 vessel cord within 30 min. Sample of blood was obtained for blood cord gas. Fundus was firm with massage and IV Pit. There were no lacerations. Blood estimation was about 500 cc. Male weighs 3610 g, and scores are 6/7/-. Both mom and are recovering well. Baby is able to move all extremities and fingers, including the left arm and fingers. Dr. Martinez was present for delivery and Dr. Knight performed the delivery w/Dr. Martinez. Odalis Knight MD R1 December 27, 2017 07:09
--- NOTE | 2017-12-27 07:10 | HHI.PR ---
Subjective Remarks [facility] Attending Delivery Note The patient was admitted for postterm induction and was started on low dose oxytocin. The patient had received ambien and fentanyl x3 prior to her epidural for rest and pain control. She then proceeded to enter into active labor quickly and progressed to completely dilated. She commenced spontaneous maternal expulsive efforts at C/C/+1 and proceeded to push between contractions due to the pressure from the with of the head. With the subsequent contraction, the head restituted and the anterior shoulder easily delivered spontaneously and atraumatically without any excessive traction or force but with poor maternal effort. The was placed on the maternal abdomen and cord double clamped and cut. The was taken to the warmer for resuscitation as per pedi note. Apgars 6/7/8, cord pH 7.375. The was moving all extremities well with bilaterally equal hand teletypewriter operator and moving all fingers well. The placenta was delivered spontaneously and appeared intact. The mother was counseled on the delivery and resuscitation needed to assist with the transition phase. Objective Vital Signs Date Time Temp Pulse Resp B/P (MAP) Pulse Ox O2 Delivery O2 Flow Rate FiO2 12/27/17 07:03 18 12/27/17 07:01 73 105/81 (89) 12/27/17 06:57 155 128/114 (119) 12/27/17 06:51 142/103 (116) 12/27/17 06:16 146 102/77 (85) 12/27/17 06:01 81 107/56 (73) 12/27/17 06:00 76 12/27/17 05:56 68 129/63 (85) 12/27/17 05:55 74 12/27/17 05:51 71 131/73 (92) 12/27/17 05:50 72 12/27/17 05:45 132/74 (93) 12/27/17 05:45 67 12/27/17 05:42 18 12/27/17 05:42 18 12/27/17 05:41 73 126/69 (88) 12/27/17 05:40 66 12/27/17 05:36 77 141/83 (102) 12/27/17 05:35 83 12/27/17 05:31 80 135/82 (99) 12/27/17 05:30 83 5/17/18 05:30 22 12/27/17 05:26 73 130/78 (95) 12/27/17 05:25 72 12/27/17 05:21 75 129/68 (88) 12/27/17 05:20 84 12/27/17 05:16 78 119/60 (79) 12/27/17 05:15 85 12/27/17 05:11 84 117/75 (89) 12/27/17 05:10 70 130/57 (81) 12/27/17 05:10 80 12/27/17 03:39 66 106/47 (66) 12/27/17 01:27 73 126/61 (82) 12/26/17 23:58 72 114/51 (72) 12/26/17 23:15 98.1 18 12/26/17 23:03 81 105/54 (71) 12/26/17 21:25 18 12/26/17 21:24 78 109/63 (78) Result Diagram: 12/26/17 1900 Bruna Martinez MD December 27, 2017 07:10
[2017-12-27] MEDS ORDERED: BENZOCAINE 20% TOPICAL SPRAY 60 ML CAN TOPICAL PRN (07:15)
[2017-12-27] MEDS ORDERED: ONDANSETRON ODT 4 MG TAB PO PRN (07:15)
[2017-12-27] MEDS ORDERED: SODIUM CHLORIDE 0.9% FLUSH 10 ML FLUSH IV FLUSH PRN (07:15)
[2017-12-27] MEDS ORDERED: ACETAMINOPHEN 325 MG TAB PO PRN (07:15)
[2017-12-27] MEDS ORDERED: ALUMINUM/MAGNESIUM/SIMETH 30 ML CUP PO PRN (07:15)
[2017-12-27] MEDS ORDERED: OXYTOCIN 30 UNITS-500ML PREMIX 500 ML IV SCH (07:15)
[2017-12-27] MEDS ORDERED: ZOLPIDEM TARTRATE 5 MG TAB PO PRN (07:15)
[2017-12-27] MEDS ORDERED: DOCUSATE SODIUM 50 MG/SENNA 8.6 MG TAB PO PRN (07:15)
[2017-12-27] MEDS ORDERED: WITCH HAZEL 50%/GLYCERIN 12.5% 40 PAD JAR TOPICAL PRN (07:15)
[2017-12-27] MEDS: SODIUM CHLORIDE 0.9% FLUSH 10 ML FLUSH IV FLUSH SCH (10:47)
[2017-12-27] MEDS: IBUPROFEN 800 MG TAB PO PRN ×2 (14:52→22:04)
[2017-12-27] MEDS ORDERED: DIPHTH/TETANUS/ACEL PERTUSSIS (BOOSTER) 0.5 ML VIAL/PFS IM ONE (16:00)
[2017-12-27] MEDS ORDERED: MEASLES, MUMPS, RUBELLA VACCINE 0.5 ML VIAL SQ ONE (16:00)
[2017-12-27] MEDS ORDERED: cefTRIAXone INJ 2,000 MG in SODIUM CHLORIDE 0.9% INJ 100 ML IV ONE (22:00)
--- NOTE | 2017-12-28 08:24 | HHI.OB ---
Subjective Post Day: 1 Remarks Patient seen and examined this morning. AFVSS overnight. day #1. Patient states her pain is well-controlled. Decreased lochia. Denies dysuria. No breast tenderness. She is feeding the baby via breast without reported issues. Appetite good. No nausea or vomiting. Endorses flatus. Ambulating well. Denies fevers or chills, chest pain, dyspnea, calf pain, or cough. She otherwise has no other complaints or concerns this morning. Objective Vitals/I&O Vital Signs Date Time Temp Pulse Resp B/P (MAP) Pulse Ox O2 Delivery O2 Flow Rate FiO2 12/27/17 21:00 97.8 66 18 118/57 (77) Objective Remarks GENERAL: Well-nourished, well-developed patient. CARDIOVASCULAR: Regular rate and rhythm without murmurs, gallops, or rubs. RESPIRATORY: Breath sounds equal bilaterally. No accessory muscle use. ABDOMEN/GI: Abdomen soft, non-tender. Fundus: Firm, non-tender at umbilicus. GENITOURINARY: Light to moderate bleeding. EXTREMITIES: No cyanosis or edema, non-tender, without signs of DVT. Medications and IVs Current Medications Medications (Trade) Dose Ordered Sig/[place] Route Start Time Stop Time Status Last Admin Lactated Ringer's 1,000 ml @ 125 mls/hr Q8H IV 12/26/17 19:32 12/27/17 03:32 Lactated Ringer's 1,000 ml @ 3,000 mls/hr Q20M PRN IV 12/26/17 19:32 12/27/17 05:42 Sodium Chloride 1,000 ml @ 100 mls/hr Q10H PRN IV 12/26/17 19:52 (Xylocaine 1% Inj (50 ml)) 0.1 ml UNSCH X1 PRN I-DERMAL 12/26/17 19:45 12/29/17 19:44 (Bicitra Liq) 30 ml NAPPER RUNNER PO 12/26/17 19:45 12/30/17 19:44 (fentaNYL INJ) 50 mcg Q1H PRN IV PUSH 12/26/17 19:45 12/27/17 02:00 (fentaNYL INJ) 100 mcg Q1H PRN IV PUSH 12/26/17 19:45 12/27/17 03:30 Penicillin G Potassium [id number] units/Sodium Chloride 100 ml @ 200 mls/hr Q4H IV 12/27/17 00:00 12/27/17 05:40 (Xylocaine 1% Inj (50 ml)) 10 ml UNSCH X1 PRN INFIL 12/26/17 19:45 12/28/17 19:44 (Muri-Lube Oil) 10 ml UNSCH PRN TOPICAL 12/26/17 19:45 (Ambien) 5 mg HS PRN PO 12/26/17 19:45 Fentanyl/ Bupivacaine HCl 100 ml @ 0 mls/hr TITRATE PRN EPIDURAL 12/27/17 05:45 (NS Flush) 2 ml BID IV FLUSH 12/27/17 09:00 (NS Flush) 2 ml UNSCH PRN IV FLUSH 12/27/17 07:15 (Tylenol) 650 mg Q4H PRN PO 12/27/17 07:15 (Motrin) 800 mg Q8H PRN PO 12/27/17 07:15 12/27/17 22:04 (Americaine 20% Top Spr) 1 spray Q4H PRN TOPICAL 12/27/17 07:15 (Tucks Pads) 1 applic QID PRN TOPICAL 12/27/17 07:15 (Pallavi-Colace) 2 tab Q12H PRN PO 12/27/17 07:15 (Mag-Al Plus Susp Liq) 15 ml Q8H PRN PO 12/27/17 07:15 (Zofran Odt) 4 mg Q6H PRN PO 12/27/17 07:15 Assessment/Plan Problem List: (1) care following vaginal delivery ICD Codes: Z39.2 - Encounter for routine follow-up Assessment and Plan 22 year old now PPD#1. 1. Care - AFVSS - Encouraged OOB, as tolerated - Motrin or Percocet prn pain - Advised pelvic rest x 6 weeks - - Contraception: Discussed with patient this morning, patient states she will follow-up with her outpatient provider - Will f/u with OB provider within 6 weeks wdw OB hospitalist Discharge Planning Stable for discharge home today pending stable clinical course Santiago Eaton MD R2 December 28, 2017 08:23
[2017-12-28] MEDS ORDERED: PERI PO (08:54)
[2017-12-28] MEDS ORDERED: IBUP1TAB7 PO (08:54)
--- NOTE | 2017-12-28 08:55 | HHI.DCPOC ---
Discharge Care Plan Diagnosis: (1) care following vaginal delivery Report Symptoms to Your Doctor -Temperature above 100.5 degrees -Redness, of incision or excessive or foul smelling drainage -Unusual pain or calf pain -Increased vaginal bleeding -Painful or difficulty urinating -Feelings of extreme sadness or anxiety after 2 weeks Goals to Promote Your Health * To maintain your health at the optimal level, follow-up with your OB provider within 6 weeks after hospital discharge. Directions to Meet Your Goals Take your medications as prescribed Follow your dietary instruction Follow activity as directed Ensure plenty of rest for recovery Drink fluids for hydration Keep your appointments as scheduled Take your immunizations and boosters as scheduled If your symptoms worsen call your PCP, if no PCP go to Urgent Care Center or Emergency Room Smoking is Dangerous to Your Health. Avoid second hand smoke Call the 24-hour crisis hotline for domestic abuse at Santiago Eaton MD R2 December 28, 2017 08:55
[2017-12-28] MEDS: IBUPROFEN 800 MG TAB PO PRN ×2 (08:59→16:38)
[2017-12-28] MEDS: PENICILLIN G POTASSIUM INJ 2,500,000 UNITS in SODIUM CHLORIDE 0.9% INJ 100 ML IV SCH ×3 (09:23→16:15)
[2017-12-28] MEDS: SODIUM CHLORIDE 0.9% FLUSH 10 ML FLUSH IV FLUSH SCH (09:24)
[2017-12-28] MEDS: LACTATED RINGER'S 1000 ML INJ 1,000 ML IV SCH (09:24)
[2017-12-28 20:24] VITALS: BP 93/52; PULSE 73; RESP 18; TEMP 98.3
[2017-12-29] MEDS: IBUPROFEN 800 MG TAB PO PRN (06:54)
--- NOTE | 2017-12-29 08:19 | HHI.OB ---
Subjective Post Day: 2 Remarks Patient seen and examined this morning. AFVSS overnight. day #2. Patient states her pain is well-controlled. Decreased lochia. Denies dysuria. No breast tenderness. She is feeding the baby via breast. Appetite good. No nausea or vomiting. Endorses flatus. Ambulating well. Denies fevers or chills, chest pain, dyspnea, calf pain, cough. She otherwise has no complaints or concerns this morning. Objective Vitals/I&O Vital Signs Date Time Temp Pulse Resp B/P (MAP) Pulse Ox O2 Delivery O2 Flow Rate FiO2 12/28/17 20:24 98.3 73 18 93/52 (66) Objective Remarks GENERAL: Well-nourished, well-developed patient. CARDIOVASCULAR: Regular rate and rhythm without murmurs, gallops, or rubs. RESPIRATORY: Breath sounds equal bilaterally. No accessory muscle use. ABDOMEN/GI: Abdomen soft, non-tender. Fundus: Firm, non-tender at umbilicus. GENITOURINARY: Light to moderate bleeding. EXTREMITIES: No cyanosis or edema, non-tender, without signs of DVT. Medications and IVs Current Medications Medications (Trade) Dose Ordered Sig/[place] Route Start Time Stop Time Status Last Admin Lactated Ringer's 1,000 ml @ 125 mls/hr Q8H IV 12/26/17 19:32 12/27/17 03:32 Lactated Ringer's 1,000 ml @ 3,000 mls/hr Q20M PRN IV 12/26/17 19:32 12/27/17 05:42 Sodium Chloride 1,000 ml @ 100 mls/hr Q10H PRN IV 12/26/17 19:52 (Xylocaine 1% Inj (50 ml)) 0.1 ml UNSCH X1 PRN I-DERMAL 12/26/17 19:45 12/29/17 19:44 (Bicitra Liq) 30 ml TIMBER SUPERVISOR PO 12/26/17 19:45 12/30/17 19:44 (fentaNYL INJ) 50 mcg Q1H PRN IV PUSH 12/26/17 19:45 12/27/17 02:00 (fentaNYL INJ) 100 mcg Q1H PRN IV PUSH 12/26/17 19:45 12/27/17 03:30 Penicillin G Potassium [id number] units/Sodium Chloride 100 ml @ 200 mls/hr Q4H IV 12/27/17 00:00 12/27/17 05:40 (Muri-Lube Oil) 10 ml UNSCH PRN TOPICAL 12/26/17 19:45 (Ambien) 5 mg HS PRN PO 12/26/17 19:45 Fentanyl/ Bupivacaine HCl 100 ml @ 0 mls/hr TITRATE PRN EPIDURAL 12/27/17 05:45 (NS Flush) 2 ml BID IV FLUSH 12/27/17 09:00 (NS Flush) 2 ml UNSCH PRN IV FLUSH 12/27/17 07:15 (Tylenol) 650 mg Q4H PRN PO 12/27/17 07:15 (Motrin) 800 mg Q8H PRN PO 12/27/17 07:15 12/29/17 06:54 (Americaine 20% Top Spr) 1 spray Q4H PRN TOPICAL 12/27/17 07:15 (Tucks Pads) 1 applic QID PRN TOPICAL 12/27/17 07:15 (Pallavi-Colace) 2 tab Q12H PRN PO 12/27/17 07:15 (Mag-Al Plus Susp Liq) 15 ml Q8H PRN PO 12/27/17 07:15 (Zofran Odt) 4 mg Q6H PRN PO 12/27/17 07:15 Assessment/Plan Problem List: (1) care following vaginal delivery ICD Codes: Z39.2 - Encounter for routine follow-up Assessment and Plan 22 year old now PPD#2. 1. Care - AFVSS - Encouraged OOB, as tolerated - Motrin or Percocet prn pain - Advised pelvic rest x 6 weeks - - Contraception: Discussed with patient this morning, patient states she will follow-up with her outpatient provider - Will f/u with OB provider within 6 weeks lela Frye Discharge Planning Stable for discharge home today Santiago Eaton MD R2 December 29, 2017 08:19
== END 2017-12-29 12:55 | disposition home or self-care (01) | DRG 775 ==
LOC: H2EB 18:22 → H1EA 12-27 09:07
PROVIDERS: ADMIT Obstetrics & Gynecology; ATTEND Obstetrics & Gynecology
PROC: 10E0XZZ Delivery of Products of Conception, External Approach (ICD-10-PCS; principal; 2017-12-26)
PROC: 3E033VJ Introduction of Other Hormone into Peripheral Vein, Percutaneous Approach (ICD-10-PCS; 2017-12-26)
PROC: 00HU33Z Insertion of Infusion Device into Spinal Canal, Percutaneous Approach (ICD-10-PCS; 2017-12-26)
PROC: 3E0R3BZ Introduction of Anesthetic Agent into Spinal Canal, Percutaneous Approach (ICD-10-PCS; 2017-12-26)
DX: O48.0 Post-term pregnancy (principal); O99.824 Streptococcus B carrier state complicating childbirth; Z37.0 Single live birth; Z3A.41 41 weeks gestation of pregnancy; Z83.3 Family history of diabetes mellitus; Z23 Encounter for immunization
CPT/HCPCS: 80307; 81001; 85025; 86900; 86901; 87086; 88307; 90715; J2540; J2590; J3010; J7120